=== PATIENT | female | born 2000 | race Two or more races ===

== ENCOUNTER 2025-05-21 20:08 | Emergency (ER) | payer OTHER ==
[~2025-05-21] VITALS: Ht 157.5 cm; Wt 74.8 kg
[2025-05-21 20:47] LABS: PLATELET COUNT (AUTO) 274 K/uL (179-408); RED BLOOD CELL COUNT(AUTO) 3.61 MIL/uL (3.63-4.92); RED CELL DISTRIBUTION WIDTH 12.8 % (12.3-17.7); WHITE BLOOD COUNT (AUTO) 7.3 K/uL (3.8-11.8)
[2025-05-21 20:52] LABS: CREATININE 0.5 mg/dL (0.6-1.3); SODIUM SERUM 140 mmol/L (136-145); UREA NITROGEN, BLOOD 11 mg/dL (7-18)
[2025-05-21 21:02] LABS: *BILIRUBIN,URIN NEGATIVE (NEGATIVE); *BLOOD, URINE 2+ (NEGATIVE); *CLARITY,URINE CLEAR (CLEAR); *COLOR,URINE YELLOW (YELLOW); *KETONES,URINE NEGATIVE (NEGATIVE); *PROTEIN,URINE NEGATIVE (NEGATIVE); *UROBILINOGEN,URINE 0.2 E.U./dl (NORMAL); LEUKOCYTE ESTERASE ,URINE NEGATIVE (NEGATIVE); NITRITE, URINE NEGATIVE (NEGATIVE); UGLUCOSE NEGATIVE (NEGATIVE)
[2025-05-21 21:03] LABS: *URINE HCG, QUAL POSITIVE (NEGATIVE)
[2025-05-21 21:12] LABS: SQUAMOUS EPITHELIAL CELL,UR FEW /HPF (NONE SEEN)
[2025-05-21] MEDS: TRAMADOL HCL 50 MG TABLET PO ONE (21:17)
[2025-05-21] MEDS ORDERED: METOCLOPRAMIDE HCL 10 MG TABLET ONE (21:18)
[2025-05-21] MEDS: METOCLOPRAMIDE HCL 10 MG TABLET PO ONE (21:19)
[2025-05-21 22:00] VITALS: BP 108/60
[2025-05-21] MEDS ORDERED: TRAN650T2 PO (22:10)
[2025-05-21] MEDS ORDERED: TRAM50TA2 PO (22:10)
[2025-05-21] MEDS ORDERED: ALPRAZOLAM 0.5 MG TABLET ONE (22:22)
[2025-05-21] MEDS: ALPRAZOLAM 0.25 MG TABLET PO ONE (22:25)
[2025-05-21] MEDS ORDERED: IV NORMAL SALINE 1000 ML BAG IV ONE (23:15)
[2025-05-21] MEDS ORDERED: METR-147 PO (23:43)
[2025-05-21] MEDS ORDERED: DOXY-326 PO (23:43)
[2025-05-21] MEDS ORDERED: CEFTRIAXONE 500 MG VIAL ONE (23:53)
[2025-05-22] MEDS: CEFTRIAXONE 500 MG VIAL IM ONE (00:02)
[2025-05-22 00:05] VITALS: BP 110/65; O2SAT 98
== END 2025-05-22 00:06 | disposition home or self-care (01) ==
LOC: ER 20:10
DX: N93.9 Abnormal uterine and vaginal bleeding, unspecified (principal); J45.909 Unspecified asthma, uncomplicated; R10.30 Lower abdominal pain, unspecified; R10.2 Pelvic and perineal pain; Z88.0 Allergy status to penicillin; Z60.2 Problems related to living alone
CPT/HCPCS: 99285; 76805; 80048; 81001; 84703; 85025; 84702; 36415; 96372; J0696; 70030-TC; A4606; A4663; J8597